=== PATIENT | female | born 1965 | race Caucasian/White ===

== ENCOUNTER 2016-11-16 09:53 | Day surgery (SDC) | payer OTHER ==
[~2016-11-16] VITALS: Ht 152.4 cm; Wt 77.8 kg
[2016-11-16 10:23] VITALS: Ht 152.4 cm; Wt 77.8 kg
[2016-11-16] MEDS ORDERED: NO HOME MEDS (10:30)
[2016-11-16 10:39] VITALS: BP 140/66; PULSE 88; RESP 16
[2016-11-16] MEDS ORDERED: MIDAZOLAM 1 MG/ML 2 ML INJ ONE ×2 (12:03→12:04)
[2016-11-16] MEDS ORDERED: FENTAnyl 50 MCG/ML VIAL ONE (12:03)
[2016-11-16] MEDS ORDERED: EPINEPHrine 0.1 MG/ML SYG ONE (12:03)
[2016-11-16 12:18] VITALS: BP 130/67; PULSE 76; RESP 20
--- NOTE | 2016-11-16 14:02 | GILP ---
DATE OF PROCEDURE: 11/16/2016 PROCEDURE: Colonoscopy with saline lift polypectomy. INDICATION: A 51-year-old female undergoing this procedure for colon cancer screening and positive stool guaiac. The risk of the procedure, related and unrelated complications, sedative risks, alter natives discussed and informed consent was obtained. DESCRIPTION OF PROCEDURE: The patient was brought to the GI lab, sedated with Versed 4 mg, fentanyl 100 mcg. After optimal sedation, digital examination done. Sphincter tone was normal. No mass wa s felt. Scope was passed with much ease into rectum and near the hepatic flexure, flat polyp right on the fold identified. This was 1.2 cm in diameter. With the saline lift, hot snare polypectomy d one. No tissue was left behind. Then entered into the cecum. Appendiceal orifice identified. Sto ol was there which was removed. Entered into terminal ileum which was normal. The IC valve was pro minent. Exactly opposite to the IC valve, there was a polyp which was removed by piecemeal polypect butch. This was again 1.5 cm in diameter. While coming out, there was another 2.5 cm flat sessile po lyp identified. We injected normal saline and piecemeal hot polypectomy done. When the almost enti re polyp was removed, some tissues were left behind and those were removed by cold snare technique. We aspirated all the polyps and sent for analysis. Pictures were taken before and after. Epinephr ine was injected and good blanching was created. A total of 2.5 mL of epinephrine was injected at t he base of the polyp. IMPRESSION: 1. Multiple polypectomies done as described. The largest of the 3 polyp was in the ascending colon which was 2.5 cm. The base was mildly lifted up, but it was a broad. Piecemeal hot snare and cold snare polypectomy done and after lifting it with normal saline and also injection of epinephrine. 2. Polyp from the hepatic flexure removed successfully with the hot snare and saline lift. 3. Polyp from the cecum opposite to IC valve removed by piecemeal polypectomy with the cold snare. The patient was asymptomatic at the end of the procedure. The scope was removed with excellent pat ient tolerance. PLAN: Review histopathology of the polyps. The patient definitely needs a repeat colonoscopy in 6 months to examine the post-polypectomy sites to make sure no tissue was left behind, and also there are 1 or 2 still small flat polyps in the ascending colon which need to be removed. Dictated By: GENESIS MULLINS/DOMENICO Conf#: [id number] DID#: [id number] CC: GENESIS HUYNH MD; BAYRON SORENSON MD;*EndCC*
== END 2016-11-16 13:09 | disposition home or self-care (01) ==
LOC: GIL 09:53
PROVIDERS: ATTEND Internal Medicine Gastroenterology
DX: Z12.11 Encounter for screening for malignant neoplasm of colon (principal); D12.2 Benign neoplasm of ascending colon; D12.0 Benign neoplasm of cecum
CPT/HCPCS: 45380; 45385; 88305; J0171; J2250; J3010; Z7610